=== PATIENT | female | born 1930 | race Caucasian/White ===

== ENCOUNTER 2020-10-28 16:47 | Inpatient (IN) | payer MEDICARE ==
[~2020-10-28] VITALS: Ht 157.5 cm; Wt 45.8 kg
[2020-10-28] MEDS ORDERED: ACETAMINOPHEN 325 MG TABLET PO PRN (17:00)
[2020-10-28] MEDS ORDERED: BLOOD SUGAR DIAGNOSTIC 1 EACH STRIP IN ONE (17:00)
[2020-10-28] MEDS ORDERED: MAGNESIUM HYDROXIDE 30 ML UDC PO PRN (17:00)
[2020-10-28] MEDS ORDERED: MAG HYDROX/AL HYDROX/SIMETH 30 ML UDC PO PRN (17:00)
[2020-10-28] MEDS ORDERED: LATA2.5D15 LEFTEYE (17:21)
[2020-10-28] MEDS ORDERED: TIMO10DR19 LEFTEYE (17:21)
[2020-10-28 17:55] VITALS: BP 139/98
--- NOTE | 2020-10-28 18:18 | NUR ---
Pt. arrived in the unit via an ambulance and transported via a gurney. Pt. placed in room 216A. Pt. is under the services of Dr. Coburn and Eder DE LA ROSA. Dr. Coburn made aware of the admission. V/S taken, contraband taken and skin assessment given. Will endorse to the incoming nurse for the completion of the admission.
[2020-10-28 18:24] VITALS: BP 139/92
--- NOTE | 2020-10-28 19:05 | NUR ---
RN NOTES: RECIVED NEW ADMISSION FORM DAY SHIFT, WILL CONTINUITY WITH CARE.
[2020-10-28 20:00] VITALS: BP 161/84
--- NOTE | 2020-10-28 20:00 | NUR ---
RN NOTES: OFFERED ATIVAN FOR PT. AGGRESSIVE , UNCCOERTIVE BEHAVIOR , PT. REFUSED , PER PT. IDONOT WANT ANY MEDICATIONS .
[2020-10-28] MEDS: LATANOPROST EYE DROP 0.005% 2.5 ML BOTTLE LEFTEYE SCH (21:14)
[2020-10-28 22:00] VITALS: BP 136/83
[2020-10-28] MEDS ORDERED: TEMAZEPAM 7.5 MG CAPSULE PO PRN (22:00)
--- NOTE | 2020-10-28 23:25 | NUR ---
ADMISSION NOTES: ADMITTED THIS 89Y/O FEMALE PATIENT DIRECT ADMIT FROM [facility], PT. ADMITTED TO GPS ON HOLD 5150 DTS,PER HOLD DUE TO PT. STATING THAT SHE IS ALWAYS IN CHRONIC PAIN AND WISHES TO ,UPON FACE TO FACE ASSESSMENT PATIENT IS A&O X 1, ANXIOUS, AGGRESSIVE ,UNCOOPERTIVE ,DISORGNIZED, DISHEVELLED ,HYPERVERBAL, VERBALLY ABUSIVE, SCREAMING YELLING , NON COMPLY WITH CARE, AND MEDICATIONS , TALIKG TO SELF, DENIES SI /HI AT THIS TIME, PT. IS POOR HISTORIAN, POOR INSIGHT ,POOR JUDGEMENT , PT. REFUSED TO SIGNS ADMISSION CONSENT PAPERS ,DUE TO CONFUSION , BOTH MD AWARE AND NOTIFIED OF THE ADMISSION, BELONGINGS CONTRABAND WERE DONE ,PT. RIGHTS DISCUSS BY NAVAL AIRCREWMAN OPERATOR , PROVIDE THE PT. WITH HANDBOOK, AND MEDICATIONS GUIDE, ENVIRONMENTAL SAFETY CHECK DONE, ENCOURAGED PT. VERBALIZED ANY FEELING CONCERN TO STAFF, ORIENT TO UNIT POLICY, NO ACUTE DISTRESS NOTED,VITAL SIGNS WNL ,DENIES ANY PAIN AT THIS TIME,WILL CONTINUE TO MONITOR FOR Q15 SAFETY AND BEHAVIOR.
[2020-10-29 08:00] VITALS: BP 151/91
[2020-10-29] MEDS: TIMOLOL 0.25% SOL OPHTH 10 ML BOTTLE LEFTEYE SCH ×2 (09:53→17:15)
[2020-10-29] MEDS: Z GUARD REMEDY 2 OZ OINT TP SCH (09:53)
[2020-10-29 10:34] LABS: BILIRUBIN,URINE MODERATE (NEGATIVE); COLOR,URINE YELLOW (YELLOW); LEUKOCYTE ESTERASE ,URINE SMALL (NEGATIVE); NITRITE, URINE NEGATIVE (NEGATIVE); PH,URINE 5.5 (5.0-8.0); PROTEIN,URINE NEGATIVE (NEGATIVE); UGLUCOSE NEGATIVE (NEGATIVE); UROBILINOGEN,URINE 0.2 EU/dL (0.2)
[2020-10-29 12:02] LABS: BACTERIA,URINE Few /HPF (None Seen); RBC,URINE 0-2 /HPF (0-2); SQUAMOUS EPITHELIAL CELL,UR Few /HPF (None Seen); WBC,URINE 51-80 /HPF (0-3)
[2020-10-29 16:00] VITALS: BP 127/79
[2020-10-29 17:07] LABS: ALBUMIN 3.7 g/dL (3.4-5.0); BILIRUBIN,TOTAL 0.8 mg/dL (0.2-1.0); CALCIUM, SERUM 9.9 mg/dL (8.5-10.1); CREATININE 0.9 mg/dL (0.6-1.3); POTASSIUM 4.2 mmol/L (3.5-5.1); TOTAL PROTEIN, SERUM 7.1 g/dL (6.4-8.2)
[2020-10-29 17:14] LABS: THYROID STIMULATING HORMONE 0.196 uIU/mL (0.358-3.74)
[2020-10-29] MEDS: DIVALPROEX SODIUM 125 MG CAP.SPRINK PO SCH (17:15)
[2020-10-29 20:00] VITALS: BP 113/68
[2020-10-29] MEDS: OLANZAPINE 2.5 MG TABLET PO SCH (21:26)
[2020-10-29] MEDS: LATANOPROST EYE DROP 0.005% 2.5 ML BOTTLE LEFTEYE SCH (21:27)
[2020-10-29] MEDS: Z GUARD REMEDY 2 OZ OINT TP PRN (21:55)
[2020-10-30] MEDS: Z GUARD REMEDY 2 OZ OINT TP PRN (06:20)
[2020-10-30 08:00] VITALS: BP 136/96
[2020-10-30] MEDS: Z GUARD REMEDY 2 OZ OINT TP SCH (09:32)
[2020-10-30] MEDS: TIMOLOL 0.25% SOL OPHTH 10 ML BOTTLE LEFTEYE SCH ×2 (09:32→16:30)
[2020-10-30] MEDS: DIVALPROEX SODIUM 125 MG CAP.SPRINK PO SCH ×4 (09:32→16:30)
[2020-10-30] MEDS: ENSURE ENLIVE 237 ML LIQUID (VANILLA) PO SCH ×2 (14:29→16:30)
[2020-10-30 16:00] VITALS: BP 132/73
[2020-10-30] MEDS: CEPHALEXIN MONOHYDRATE 500 MG CAPSULE PO SCH (16:30)
--- NOTE | 2020-10-30 20:00 | NUR ---
GPS-RN NOTES: LEFT ARM SKIN TEAR SKIN WEEKLY ASSESSMENT MADE. PATIENT NOTED TO HAVE SKIN TEAR ON HER LEFT LOWER ARM MEASURING 3CMX1.5CM. NO ACTIVE BLEEDING NOTED. PATIENT SKIN IS VERY FRAGILE. NO S/SX OF INFECTION NOTED. PATIENT IS CURRENTLY ON PLAVIX WHICH CAN CONTRIBUTE TO BRUISING. INITIAL TREATMENT DONE. HANDLED GENTLY DURING CARE. DR. GARCIA AWARE WITH ORDER OF WOUND CONSULT IN AM. WILL CONTINUE TO MONITOR FOR ANY SKIN CHANGES. Addendum: 10/31/20 at 0720 by NIELS MANN RN NURSE COIN MACHINE SUPERVISOR AWARE.
[2020-10-30] MEDS: OLANZAPINE 2.5 MG TABLET PO SCH (21:00)
[2020-10-30] MEDS: LATANOPROST EYE DROP 0.005% 2.5 ML BOTTLE LEFTEYE SCH (21:25)
--- NOTE | 2020-10-30 21:25 | NUR ---
GPS-RN NOTES: MEDICATION REFUSAL PATIENT REFUSED SCHEDULED SEROQUEL AND XALATAN EYEDROPS FOR TONIGHT. EDUCATED PATIENT REGARDING MEDICATION COMPLIANCE BUT PATIENT CONTINUED TO REFUSE. WILL CONTINUE TO MONITOR FOR PATIENT'S SAFETY.
[2020-10-31] MEDS: TIMOLOL 0.25% SOL OPHTH 10 ML BOTTLE LEFTEYE SCH ×2 (09:00→16:22)
[2020-10-31] MEDS: DIVALPROEX SODIUM 125 MG CAP.SPRINK PO SCH ×3 (09:00→16:22)
[2020-10-31] MEDS: Z GUARD REMEDY 2 OZ OINT TP SCH (09:00)
[2020-10-31] MEDS: CEPHALEXIN MONOHYDRATE 500 MG CAPSULE PO SCH ×2 (11:13→16:23)
[2020-10-31] MEDS: ENSURE ENLIVE 237 ML LIQUID (VANILLA) PO SCH ×3 (11:13→16:23)
[2020-10-31] MEDS: OLANZAPINE 2.5 MG TABLET PO SCH ×2 (12:30→21:00)
--- NOTE | 2020-10-31 16:15 | NUR ---
Family Contact: SW called the pts son, Jeremy ([phone]), and discussed the discharge plan and he stated that he wanted the pt home and does not want her to be placed elsewhere.
--- NOTE | 2020-10-31 16:28 | NUR ---
Initial Discharge Plan: Pt currently resides at home with her son, Jeremy ([phone]), located at [address] [place] [address]. Per pt, she would like to go home. SW will work with the pt and the MD regarding appropriate discharge planning. SW will form a safe and proper discharge.
--- NOTE | 2020-10-31 19:11 | NUR ---
Late entry: Patient accepts medication dose zyprexa as well as depakote at 5pm, and patient took 1300 depakote. Haider Masters RN
[2020-10-31 20:00] VITALS: BP 103/62
--- NOTE | 2020-10-31 21:45 | NUR ---
GPS RN NOTES: OMNICELL DOWN, UNABLE TO PULL MEDS, PARACHUTE HARNESS RIGGER NOTIFIED. 24 HR HELP DESK NOTIFIED, AWAITING DISPATCH ENGINEERS.
[2020-10-31] MEDS: LATANOPROST EYE DROP 0.005% 2.5 ML BOTTLE LEFTEYE SCH (23:32)
--- NOTE | 2020-10-31 23:59 | NUR ---
GPS RN NOTES: PATIENT REFUSED PM ZYPREXA. UNCOOPERATIVE.
[2020-11-01] MEDS: LORAZEPAM 0.5 MG TABLET PO PRN (05:22)
--- NOTE | 2020-11-01 05:28 | NUR ---
GPS RN NOTES: PATIENT C/O ANXIETY AND RESTLESSNESS. ATIVAN 0.5MG 1TAB GIVEN PO PRN ORDERED AT 0522. WILL CONTINUE TO MONITOR.
[2020-11-01 06:56] LABS: BASOPHILS % (AUTO) 0.4 % (0.0-2.0); EOSINOPHILS % (AUTO) 1.8 % (0.0-6.0); HEMATOCRIT 38 % (33-45); LYMPHOCYTES # (AUTO) 1.1 /CMM (0.8-4.8); LYMPHOCYTES % (AUTO) 11.9 % (20.0-44.0); MEAN CORPUSCULAR HGB CONC 34 g/dl (31.0-36.0); MEAN CORPUSCULAR VOLUME 92 fL (82-100); MONOCYTES # (AUTO) 1.1 /CMM (0.1-1.30); MONOCYTES % (AUTO) 11.7 % (2.0-12.0); NEUTROPHILS # (AUTO) 7.2 /CMM (1.8-8.9); NEUTROPHILS % (AUTO) 74.2 % (43.0-81.0); PLATELET COUNT (AUTO) 238 /CMM (150-450); RED BLOOD CELL COUNT(AUTO) 4.18 MIL/uL (4.0-5.2); WHITE BLOOD COUNT (AUTO) 9.6 K/uL (4.3-11.0)
[2020-11-01 07:46] LABS: ALBUMIN 3.2 g/dL (3.4-5.0); BILIRUBIN,TOTAL 0.8 mg/dL (0.2-1.0); CALCIUM, SERUM 9.4 mg/dL (8.5-10.1); CREATININE 0.9 mg/dL (0.6-1.3); MAGNESIUM 2.1 mg/dL (1.8-2.4); TOTAL PROTEIN, SERUM 6.3 g/dL (6.4-8.2)
[2020-11-01 08:00] VITALS: BP 164/86
[2020-11-01] MEDS: ENSURE ENLIVE 237 ML LIQUID (VANILLA) PO SCH ×3 (08:33→17:00)
[2020-11-01] MEDS: OLANZAPINE 2.5 MG TABLET PO SCH ×2 (08:35→22:33)
[2020-11-01] MEDS: TIMOLOL 0.25% SOL OPHTH 10 ML BOTTLE LEFTEYE SCH ×2 (08:35→17:41)
[2020-11-01] MEDS: CEPHALEXIN MONOHYDRATE 500 MG CAPSULE PO SCH ×2 (08:35→17:36)
[2020-11-01] MEDS: DIVALPROEX SODIUM 125 MG CAP.SPRINK PO SCH ×3 (08:35→17:36)
[2020-11-01] MEDS: Z GUARD REMEDY 2 OZ OINT TP SCH (08:41)
--- NOTE | 2020-11-01 09:58 | NUR ---
WOUND CARE CONSULT: PT PRESENTS WITH GLUTEAL CREASE INCONTINENCE ASSOCIATED SKIN DAMAGE, PRESENT ON ADMISSION. PT ALSO NOTED TO HAVE VERY LONG TOENAILS AND SKIN TEAR TO LEFT ARM. RECOMMENDATIONS MADE FOR WOUND CARE AND SKIN PROTECTION. DISCUSSED WITH NURSING STAFF. DPM CONSULT CALLED TO DR HAMPAPUR. VELAZQUEZ IN AGREEMENT WITH PLAN OF CARE. Addendum: 11/01/20 at 1000 by JUD CHIU WNDNU Amended: Links added.
--- NOTE | 2020-11-01 14:01 | NUR ---
Probable Cause Hearing: Pts 5250 hold was upheld for grave disability.
--- NOTE | 2020-11-01 15:06 | NUR ---
APS Pattern Vault Clerk Contact: Nahed ([phone]) contacted the SW and stated that she is going to close the case if the pt is going to be in the hospital longer. SW stated that she does not have a discharge date but the plan is for the pt to return home.
[2020-11-01 16:00] VITALS: BP 159/69
[2020-11-01 20:00] VITALS: BP 141/74
[2020-11-01] MEDS: LATANOPROST EYE DROP 0.005% 2.5 ML BOTTLE LEFTEYE SCH (22:33)
--- NOTE | 2020-11-02 05:43 | NUR ---
GPS RN CLOSING NOTE PATIENT SLEEPING IN BED A/OX1;. TOLERATING ROOM AIR WELL WITH NO SOB. UNCOOPERATIVE WITH CARE. MED COMPLIANT NO SI/HI AT THIS TIME. DENIES PAIN / DISCOMFORT AT THIS TIME. AUDITORY HALLUCINATIONS NOTED. SAFETY MEASURES IN PLACE: BED IN LOWEST LOCKED POSITION, SIDE RAILS UPX3, EDUCATED TO USE CALL LIGHT, BED ALARMS ON. ALL NEEDS ATTENDED AND ANTICIPATED. WILL ENDORSE CARE PLAN FOR MONITORING FOR SAFETY AND BEHAVIOR TO MORNING RN.
--- NOTE | 2020-11-02 05:44 | NUR ---
GPS RN CLOSING NOTE PATIENT SLEEPING IN BED A/OX2. TOLERATING ROOM AIR WELL WITH NO SOB. COOPERATIVE WITH CARE. NO SI/HI AT THIS TIME. SAFETY MEASURES IN PLACE: BED IN LOWEST LOCKED POSITION, SIDE RAILS UPX3, EDUCATED TO USE CALL LIGHT, BED ALARMS ON. ALL NEEDS ATTENDED AND ANTICIPATED. WILL ENDORSE CARE PLAN FOR MONITORING FOR SAFETY AND BEHAVIOR TO MORNING RN.
--- NOTE | 2020-11-02 07:30 | NUR ---
PT RECEIVED RESTING COMFORTABLY IN BED. NO S/S OR C/O PAIN OR DISTRESS NOTED. SIDE RAILS UP X2. WILL CONTINUE PLAN OF CARE.
[2020-11-02 08:00] VITALS: BP 152/78
[2020-11-02] MEDS: ENSURE ENLIVE 237 ML LIQUID (VANILLA) PO SCH ×3 (09:33→16:42)
[2020-11-02] MEDS: Z GUARD REMEDY 2 OZ OINT TP SCH (09:33)
[2020-11-02] MEDS: CEPHALEXIN MONOHYDRATE 500 MG CAPSULE PO SCH ×2 (09:33→16:41)
[2020-11-02] MEDS: OLANZAPINE 2.5 MG TABLET PO SCH ×3 (09:33→21:22)
[2020-11-02] MEDS: DIVALPROEX SODIUM 125 MG CAP.SPRINK PO SCH ×3 (09:33→16:41)
[2020-11-02] MEDS: TIMOLOL 0.25% SOL OPHTH 10 ML BOTTLE LEFTEYE SCH ×2 (09:34→16:42)
--- NOTE | 2020-11-02 11:01 | NUR ---
Family Contact: SW called the pts son, Jeremy ([phone]), and informed him that the pt is not going to be discharged yet and that once there is a date he will be able to come and pick her up.
--- NOTE | 2020-11-02 15:35 | NUR ---
RN NOTE- NOTED PT TO BE SITTING IN GALI CHAIR AND HEARD COARSE BREATH SOUNDS. AUSCULTATION OF LUNGS NOTED LLL RALES PRESENT, NO RHONCHI, NO COUGH, O2 SATS AT 94% ON RA. PARALEGAL ASSISTANT VIGNESH NOTIFIED. CXR ORDERED.
[2020-11-02 16:00] VITALS: BP 143/56
--- NOTE | 2020-11-02 17:15 | NUR ---
RN NOTE- CXR SHOWS MILD LT BASILAR INFILTRATE. ESTRELLA MEDELLIN NOTIFIED
--- NOTE | 2020-11-02 17:40 | NUR ---
DARK STOOL NOTED MIX OF FORMED AND SOFT STOOL, DARK, RED TINGED IN COLOR. STOOL SAMPLE SENT TO LAB. MADE AWARE.
[2020-11-02] MEDS ORDERED: IV NS 0.9% 500 ML IV ONE (18:00)
[2020-11-02] MEDS ORDERED: IV NS 0.9% 1,000 ML IV PRN (18:00)
[2020-11-02 18:30] LABS: HEMOGLOBIN 11.4 g/dL (11.5-14.8)
--- NOTE | 2020-11-02 18:38 | NUR ---
CHANGE OF SHIFT REPORT PT RESTING COMFORTABLY IN BED. SIDE RAILS UP X2. NO S/S OR C/O PAIN OR DISTRESS NOTED. PT KEPT CLEAN, DRY AND COMFORTABLE. NO SIGNIFICANT CHANGES SINCE PREVIOUS SHIFT. WILL GIVE REPORT TO CORRINE BLANCO.
[2020-11-02 19:52] LABS: OCCULT BLOOD STOOL POSITIVE (NEGATIVE)
[2020-11-02 20:10] VITALS: BP 159/90
[2020-11-02] MEDS: LORAZEPAM 0.5 MG TABLET PO PRN (21:22)
[2020-11-02] MEDS: LATANOPROST EYE DROP 0.005% 2.5 ML BOTTLE LEFTEYE SCH (21:25)
[2020-11-03 06:57] LABS: BASOPHILS % (AUTO) 0.3 % (0.0-2.0); EOSINOPHILS % (AUTO) 2.7 % (0.0-6.0); HEMATOCRIT 32 % (33-45); HEMOGLOBIN 10.5 g/dL (11.5-14.8); LYMPHOCYTES # (AUTO) 1.3 K/uL (0.8-4.8); LYMPHOCYTES % (AUTO) 12.4 % (20.0-44.0); MEAN CORPUSCULAR HGB CONC 33 g/dl (31.0-36.0); MEAN CORPUSCULAR VOLUME 94 fL (82-100); MONOCYTES # (AUTO) 1.3 K/uL (0.1-1.30); MONOCYTES % (AUTO) 13.1 % (2.0-12.0); NEUTROPHILS # (AUTO) 7.4 K/uL (1.8-8.9); NEUTROPHILS % (AUTO) 71.5 % (43.0-81.0); PLATELET COUNT (AUTO) 206 K/uL (150-450); WHITE BLOOD COUNT (AUTO) 10.3 K/uL (4.3-11.0)
[2020-11-03 07:19] LABS: CALCIUM, SERUM 9.5 mg/dL (8.5-10.1); CREATININE 0.8 mg/dL (0.6-1.3)
[2020-11-03 08:00] VITALS: BP 118/56
[2020-11-03] MEDS: OLANZAPINE 2.5 MG TABLET PO SCH ×2 (08:00→09:08)
[2020-11-03] MEDS: ENSURE ENLIVE 237 ML LIQUID (VANILLA) PO SCH ×3 (09:00→13:00)
[2020-11-03] MEDS: CEPHALEXIN MONOHYDRATE 500 MG CAPSULE PO SCH ×2 (09:00→09:11)
[2020-11-03] MEDS: DIVALPROEX SODIUM 125 MG CAP.SPRINK PO SCH ×2 (09:00→09:09)
[2020-11-03] MEDS: TIMOLOL 0.25% SOL OPHTH 10 ML BOTTLE LEFTEYE SCH (09:09)
--- NOTE | 2020-11-03 09:24 | NUR ---
Pt. reused to eat breakfast, spitting the food and refused to drink the ensure and refused water and spitting the meds being crushed. Pt. is irritable and will continue to monitor for safety.
--- NOTE | 2020-11-03 10:16 | NUR ---
RN-CO: TRIED TO CALL RESP. DEMOCRAT CARMEN VARGAS, NO ONE IS ANSWERING AND NO VOICE MAILBOX. RE: PT WILL BE DISCHARGE TO MED SURG DUE TO HIGH BUN.
[2020-11-03] MEDS ORDERED: risperiDONE 0.25 MG TABLET PO SCH (10:30)
--- NOTE | 2020-11-03 10:34 | NUR ---
Graham SCRAP DROP CRANE OPERATOR in the unit and made aware that pt. refused to eat and refused to drink and made aware of the labs and ordered to transfer pt. to the medical floor for dehydration and Dr. Cross made aware of the transfer and ordered to D/C pt. to the medical floor and to continue on hold. filing and polishing supervisor made aware.
[2020-11-03] MEDS: Z GUARD REMEDY 2 OZ OINT TP SCH (10:46)
--- NOTE | 2020-11-03 13:11 | NUR ---
Report given to Jennifer, pictures taken for skin issues and son Jeremy made aware.
--- NOTE | 2020-11-03 13:35 | NUR ---
Pt. transferred to Med Surg via hospital and wheeled by staffs. Pt. endorsed to the nurse Rodriguez in Med-Surg.
[2020-11-03] MEDS ORDERED: MAGN400O6 PO (14:57)
[2020-11-03] MEDS ORDERED: TEMA15CA5 PO (14:57)
[2020-11-03] MEDS ORDERED: CEPH250S PO (14:57)
[2020-11-03] MEDS ORDERED: ACET325T53 PO (14:57)
[2020-11-03] MEDS ORDERED: LACT-246 PO (14:57)
[2020-11-03] MEDS ORDERED: ALLA266C2 TP (14:57)
[2020-11-03] MEDS ORDERED: MAG-55 PO (14:57)
[2020-11-03] MEDS ORDERED: LORA-259 PO (14:57)
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
== END 2020-11-03 13:30 | disposition short-term general hospital (02) | DRG 885 ==
LOC: GPS 16:47
PROVIDERS: ADMIT Psychiatry & Neurology Psychosomatic Medicine; ATTEND Nurse Practitioner Acute Care
DX: F25.9 Schizoaffective disorder, unspecified (principal); F01.50 Vascular dementia, unspecified severity, without behavioral disturbance, psychotic disturbance, mood disturbance, and anxiety; N39.0 Urinary tract infection, site not specified; R45.851 Suicidal ideations; E44.0 Moderate protein-calorie malnutrition; E87.0 Hyperosmolality and hypernatremia; F29 Unspecified psychosis not due to a substance or known physiological condition; G89.29 Other chronic pain; Z91.19 Patient's noncompliance with other medical treatment and regimen; Z73.6 Limitation of activities due to disability; B96.89 Other specified bacterial agents as the cause of diseases classified elsewhere; B35.1 Tinea unguium; B35.3 Tinea pedis; M20.42 Other hammer toe(s) (acquired), left foot; M20.41 Other hammer toe(s) (acquired), right foot; M62.50 Muscle wasting and atrophy, not elsewhere classified, unspecified site; R79.89 Other specified abnormal findings of blood chemistry; R62.7 Adult failure to thrive; E86.1 Hypovolemia; D64.9 Anemia, unspecified
CPT/HCPCS: 36415; 71045-TC; 80048-TC; 80053-TC; 80061-TC; 81001; 82272-TC; 83735-TC; 84443-TC; 85025-TC; 85027-TC; 87081-TC; 87086-TC; 97112-TC; 97116-TC; 97530-TC; J7040; J7042

== ENCOUNTER 2020-11-03 11:19 | Inpatient (IN) | payer MEDICARE ==
[~2020-11-03] VITALS: Ht 154.9 cm; Wt 48.1 kg
[~2020-11-03 11:19] MED LIST: LATA2.5D15 LEFTEYE; TIMO10DR19 LEFTEYE
[2020-11-03] MEDS ORDERED: ONDANSETRON HCL/PF 4 MG/2 ML VIAL IVP PRN (14:30)
[2020-11-03] MEDS ORDERED: ACETAMINOPHEN 325 MG TABLET PO PRN (14:30)
[2020-11-03] MEDS ORDERED: MAG-55 PO (14:57)
[2020-11-03] MEDS ORDERED: LORA-259 PO (14:57)
[2020-11-03] MEDS ORDERED: LACT-246 PO (14:57)
[2020-11-03] MEDS ORDERED: TEMA15CA5 PO (14:57)
[2020-11-03] MEDS ORDERED: ACET325T53 PO (14:57)
[2020-11-03] MEDS ORDERED: CEPH250S PO (14:57)
[2020-11-03] MEDS ORDERED: MAGN400O6 PO (14:57)
[2020-11-03] MEDS ORDERED: ALLA266C2 TP (14:57)
[2020-11-03] MEDS: IV D5/0.45 NACL 1,000 ML IV PRN (15:32)
[2020-11-03] MEDS: ENOXAPARIN SODIUM 40 MG/0.4 ML DISP.SYRIN SQ SCH (15:33)
[2020-11-03] MEDS: ENSURE ENLIVE 237 ML LIQUID (VANILLA) PO SCH (17:00)
[2020-11-03] MEDS ORDERED: CEPHALEXIN MONOHYDRATE 250 MG/5 ML BOTTLE PO SCH (17:00)
[2020-11-03] MEDS: TIMOLOL 0.25% SOL OPHTH 10 ML BOTTLE LEFTEYE SCH (17:10)
--- NOTE | 2020-11-03 18:41 | NUR ---
RN CLOSING NOTE PATIENT IN BED, NO S/S OF DISTRESS OR SI/HI OBSERVED. SITTER AT BED SIDE. SKIN IS WARM TO TOUCH,KEEP CLEAN/DRY, PATIENT IN IV AND RUNNING D5 1/2 NS AT 75ML FOR HYDRATION. RESPIRATORY EVEN AND UNLABORED ON ROOM AIR. KEPT ELEVATED HOB FOR ENSURE AIRWAY AND ASPIRATION PRECAUTION, ALSO LOWEST BED POSITION FOR SAFETY. CALL LIGHT WITHIN REACH, WILL ENDORSE WASHER REPAIRMAN.
[2020-11-03 20:00] VITALS: BP 163/100
[2020-11-03] MEDS: LATANOPROST EYE DROP 0.005% 2.5 ML BOTTLE LEFTEYE SCH (22:00)
--- NOTE | 2020-11-03 22:00 | NUR ---
MS RN OPENING NOTES Patient is A&Ox1. Thrashes her arms when approached during initial introduction, tried to spit on staff when checking IV site. IV site to CAROL is free from redness or swelling, intact and patent. Sitter at bedside d/t psych hold. No signs of respiratory or cardiac distress. Will continue to monitor.
[2020-11-04] MEDS ORDERED: KETOROLAC TROMETHAMINE INJ 30 MG/ML VIAL IV PRN (01:30)
[2020-11-04] MEDS ORDERED: KETOROLAC TROMETHAMINE INJ 30 MG/ML VIAL IM PRN (01:30)
--- NOTE | 2020-11-04 02:03 | NUR ---
During 1999 vital signs on 11/03 patients B/P was 163/100, HR 96 but patient was thrashing her arms around trying to be combative so difficult to tell if this is accurate. At 0100 on 11/04 patient c/o 4/10 pain to back, elbows, and L leg. Order obtained by Dr. Qureshi for Toradol 15mg IV Q8H PRN for pain. Given as ordered at 0150. rechecked BP was 174/86. Will recheck when pain medication takes effect.
[2020-11-04] MEDS: IV D5/0.45 NACL 1,000 ML IV PRN ×2 (03:53→19:50)
[2020-11-04 04:08] VITALS: BP 160/58
--- NOTE | 2020-11-04 06:06 | NUR ---
MS RN CLOSING NOTES Patient is A&Ox1. VSS. Pain managed with PRN Toradol. At beginning of the shift patient was combative thrashing arms around, trying to spit on and bite staff. By 0200 patient was calm and cooperative. Able to fall asleep shortly after but easy to rouse. At 0515 patient refusing AM labs being combative with staff, tried again at 0600, patient continues to refuse and be combative.
[2020-11-04] MEDS: PANTOPRAZOLE 40 MG TABLET.DR PO SCH (07:30)
[2020-11-04 08:00] VITALS: BP 146/71
--- NOTE | 2020-11-04 08:00 | NUR ---
m/s director of compensation: notes awaiting for speech therapist for swallow eval. pt sleeping at this time. sitter at bedside. will continue to monitor.
[2020-11-04] MEDS: ENSURE ENLIVE 237 ML LIQUID (VANILLA) PO SCH ×3 (08:01→16:59)
[2020-11-04] MEDS: TIMOLOL 0.25% SOL OPHTH 10 ML BOTTLE LEFTEYE SCH ×2 (09:00→16:59)
--- NOTE | 2020-11-04 09:32 | NUR ---
m/s human resources generalist: notes pt refused eye drops, stated, "no they don't help." sitter remains at bedside.
--- NOTE | 2020-11-04 10:13 | NUR ---
WOUND CARE CONSULT: PT PRESENTS WITH RASH TO LOWER BUTTOCKS AREA, SKIN TEARS TO BILATERAL ARMS AND DRY SKIN TEAR/WOUND TO LEFT LOWER LEG, ALL PRESENT ON ADMISSION. RECOMMENDATIONS MADE FOR SKIN PROTECTION AND WOUND CARE. DISCUSSED WITH NURSING STAFF. DR ROUSSEAU NOTIFIED OF DP CONSULT REQUEST FOR LOWER LEG WOUND. MD IN AGREEMENT WITH PLAN OF CARE. Addendum: 11/04/20 at 1014 by JUD CHIU WNDNU Amended: Links added.
--- NOTE | 2020-11-04 10:23 | NUR ---
APS Report: SW made a Protective Services Report. Report (Intake ID [id number]) was successfully submitted on 11/04/2020 at 10:21 AM.
[2020-11-04] MEDS ORDERED: Z GUARD REMEDY 2 OZ OINT TP PRN (10:30)
--- NOTE | 2020-11-04 12:20 | NUR ---
m/s occupational therapy director: notes misha benedict (LEARNING AND DEVELOPMENT ADMINISTRATOR) talking to kehinde (son) at this time.
--- NOTE | 2020-11-04 14:00 | NUR ---
m/s fiberglass container winding operator: notes pt still refuses labs. pt remains non-compliant with care and tx.
--- NOTE | 2020-11-04 14:00 | NUR ---
m/s turner and former automatic: notes pt gets combative during care and wound tx, unable to do wound care due to hitting, pinching, punching, and kicking staff. reality orientation provided prn. sitter remains at bedside. will continue to monitor.
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
[2020-11-04] MEDS: Z GUARD REMEDY 2 OZ OINT TP SCH (15:19)
[2020-11-04] MEDS: risperiDONE 0.25 MG TABLET PO SCH (16:57)
[2020-11-04] MEDS: CLOTRIMAZOLE 1% 15 GM TUBE TP SCH (16:59)
--- NOTE | 2020-11-04 17:55 | NUR ---
m/s oyster worker: notes pt remains resistive to care and tx. easily gets agitated despite education provided. sitter remains at bedside. reality orientation provided prn. will continue to monitor.
--- NOTE | 2020-11-04 19:10 | NUR ---
m/s sole stitcher hand: notes report given to paul gallo) for continuity of care.
--- NOTE | 2020-11-04 20:00 | NUR ---
MS RN NOTES Patient is A&Ox1. verbally aggressive, will try to swat at staff when approached. Denies pain. Will not try to get out of bed. No signs of respiratory or cardiac distress. 1:1 observation with sitter.
[2020-11-04 20:18] VITALS: BP 114/73
[2020-11-04] MEDS: LATANOPROST EYE DROP 0.005% 2.5 ML BOTTLE LEFTEYE SCH (21:12)
[2020-11-04] MEDS: MIRTAZAPINE 15 MG TABLET PO SCH (21:13)
[2020-11-04] MEDS: ENOXAPARIN SODIUM 40 MG/0.4 ML DISP.SYRIN SQ SCH (21:16)
--- NOTE | 2020-11-05 06:44 | NUR ---
MS RN NOTES Patient tolerated all due medications well. Denies pain or discomfort. Verbalizes forgetfulness as part of dementia. More cooperative with care today and less verbally and physically combative. Labs drawn. Kept clean and dry. No signs of distress.
[2020-11-05 07:03] LABS: BASOPHILS % (AUTO) 0.6 % (0.0-2.0); EOSINOPHILS % (AUTO) 4.1 % (0.0-6.0); HEMATOCRIT 31 % (33-45); HEMOGLOBIN 10.4 g/dL (11.5-14.8); LYMPHOCYTES # (AUTO) 0.7 K/uL (0.8-4.8); LYMPHOCYTES % (AUTO) 9.5 % (20.0-44.0); MEAN CORPUSCULAR HGB CONC 34 g/dl (31.0-36.0); MEAN CORPUSCULAR VOLUME 92 fL (82-100); NEUTROPHILS # (AUTO) 5.7 K/uL (1.8-8.9); NEUTROPHILS % (AUTO) 72.8 % (43.0-81.0); PLATELET COUNT (AUTO) 226 K/uL (150-450); RED BLOOD CELL COUNT(AUTO) 3.37 MIL/uL (4.0-5.2); WHITE BLOOD COUNT (AUTO) 7.8 K/uL (4.3-11.0)
[2020-11-05 07:14] LABS: CALCIUM, SERUM 8.5 mg/dL (8.5-10.1); CREATININE 0.7 mg/dL (0.6-1.3); MAGNESIUM 1.7 mg/dL (1.8-2.4); POTASSIUM 3.1 mmol/L (3.5-5.1)
--- NOTE | 2020-11-05 07:31 | NUR ---
MS RN NOTES PATIENT RECEIVED IN BED, RESTING COMFORTABLY. ALERT AND ORIENTED X 1. ON ROOM AIR, WITH NO RESPIRATORY DISTRESS NOTED, WITH EVEN NON-LABORED BREATHING. SKIN WARM AND DRY TO TOUCH, IV ACCESS INTACT AND PATENT CURRENTLY INFUSING IV FLUIDS. PATIENT DENIES PAIN OR DISCOMFORT AT THIS TIME. SITTER AT BEDSIDE. SAFETY PRECAUTIONS IMPLEMENTED WITH BED LOCKED, BILATERAL SIDE RAILS UP, BED IN THE LOWEST POSITION, BED ALARM ON AND CALL LIGHT WITHIN EASY REACH. WILL CONTINUE TO MONITOR PATIENT.
[2020-11-05 08:00] VITALS: BP_SYST 142; BP_SYST 145; BP_DIAS 78; BP_DIAS 92
[2020-11-05] MEDS: PANTOPRAZOLE 40 MG TABLET.DR PO SCH (08:25)
[2020-11-05] MEDS: risperiDONE 0.25 MG TABLET PO SCH ×2 (08:25→16:07)
[2020-11-05] MEDS: CLOTRIMAZOLE 1% 15 GM TUBE TP SCH ×2 (08:30→16:09)
[2020-11-05] MEDS: ENSURE ENLIVE 237 ML LIQUID (VANILLA) PO SCH ×3 (08:30→17:02)
[2020-11-05] MEDS: Z GUARD REMEDY 2 OZ OINT TP SCH (08:30)
[2020-11-05] MEDS: TIMOLOL 0.25% SOL OPHTH 10 ML BOTTLE LEFTEYE SCH ×2 (08:32→16:09)
[2020-11-05] MEDS: IV D5/0.45 NACL 1,000 ML IV PRN (08:36)
--- NOTE | 2020-11-05 08:46 | NUR ---
MS RN NOTES PATIENT REQUESTED TYLENOL FOR MILD PAIN, ADMINISTERED PO TYLENOL ORDERED, PATIENT SPITTED OUT AND STATED SHE "DOES NOT WANT IT." WILL CONTINUE TO MONITOR PATIENT.
[2020-11-05] MEDS: Magnesium 1GM/D5W 100ML PREMIX 100 ML IV SCH ×2 (09:32→10:39)
[2020-11-05] MEDS ORDERED: POTASSIUM CHLORIDE 20 MEQ TAB.PRT.SR PO ONE (10:00)
[2020-11-05 15:54] VITALS: BP 148/68
--- NOTE | 2020-11-05 18:16 | NUR ---
MS RN NOTES PATIENT IN BED, RESTING COMFORTABLY. ALERT AND ORIENTED X 1-2. ON ROOM AIR, WITH NO RESPIRATORY DISTRESS NOTED, WITH EVEN NON-LABORED BREATHING. SKIN KEPT CLEAN, WARM AND DRY TO TOUCH, IV ACCESS INTACT AND PATENT CURRENTLY INFUSING IV FLUIDS. MET ALL OF PATIENT'S NEEDS. PATIENT DENIES PAIN OR DISCOMFORT AT THIS TIME. SITTER AT BEDSIDE. SAFETY PRECAUTIONS IMPLEMENTED WITH BED LOCKED, BILATERAL SIDE RAILS UP, BED IN THE LOWEST POSITION, BED ALARM ON AND CALL LIGHT WITHIN EASY REACH. WILL ENDORSE PLAN OF CARE TO UPCOMING RN.
--- NOTE | 2020-11-05 19:34 | NUR ---
MS RN OPENING NOTES: RECEIVED PATIENT AWAKE IN BED, BED IN LOW POSITION, CALL LIGHTS WITHIN REACH, PATIENT IS A/O X1-2 WITH 1:1 SITTER, WITH IV LINE ON CAROL#22 WITH D5 1/2 NSS @75CCML/HR INFUSING WELL, KALL NEEDS MET, KEPT CLEAN AND DRY, WILL CONTINUE TO MONITOR.
[2020-11-05 20:00] VITALS: BP 151/77
[2020-11-05] MEDS: ENOXAPARIN SODIUM 40 MG/0.4 ML DISP.SYRIN SQ SCH (21:10)
[2020-11-05] MEDS: LATANOPROST EYE DROP 0.005% 2.5 ML BOTTLE LEFTEYE SCH (21:11)
[2020-11-05] MEDS: MIRTAZAPINE 15 MG TABLET PO SCH (21:11)
[2020-11-05 22:29] VITALS: BP 151/77
[2020-11-06] MEDS: IV D5/0.45 NACL 1,000 ML IV PRN (02:02)
--- NOTE | 2020-11-06 06:50 | NUR ---
RN CLOSING NOTES: RECEIVED PATIENT AWAKE IN BED, BED IN LOW POSITION, CALL LIGHTS WITHIN REACH, NO COMPLAIN OF PAIN AND DISCOMFORT AT THIS TIME, PATIENT ON BED REST, WITH CAROL#22 ON D5 1/2NSS@75ML/HR INFUSING WELL, PATIENT IS FALL RISK WITH 1:1 SITTER ON BEDSIDE, ALL NEEDS MET, PATIENT WAS KEPT CLEAN AND DRY, ENDORSE TO INCOMING SHIFT.
[2020-11-06 07:30] VITALS: BP 159/74
--- NOTE | 2020-11-06 08:00 | NUR ---
RN OPENING NOTE PT AWAKE IN BED RESTING. A/O X1 AND CHINESE SPEAKING. NO COMPLAINT OF PAIN OR NAUSEA. CURRENTLY ON RA WITH NO SOB OR RESPIRATORY DISTRESS PRESENT. NO EDEMA PRESENT. WOUNDS PRESENT AND PICTURES IN CHART. WOUND CARE TO BE GIVEN. NO ROCK LATHER PRESENT. IV PRESENT ON RA FA AND FLUSHES WELL. LABS AND ORDERS REVIEWED. SAFETY MEASURES IN PLACE. SIDE RAILS RAISED. BED LOWERED. CALL LIGHT WITHIN REACH. WILL CONTINUE TO MONITOR.
[2020-11-06] MEDS: PANTOPRAZOLE 40 MG TABLET.DR PO SCH (08:02)
[2020-11-06] MEDS: risperiDONE 0.25 MG TABLET PO SCH ×2 (08:02→17:00)
[2020-11-06] MEDS: TIMOLOL 0.25% SOL OPHTH 10 ML BOTTLE LEFTEYE SCH ×2 (08:12→17:27)
[2020-11-06] MEDS: ENSURE ENLIVE 237 ML LIQUID (VANILLA) PO SCH ×3 (08:12→17:27)
[2020-11-06] MEDS: Z GUARD REMEDY 2 OZ OINT TP SCH (08:14)
[2020-11-06] MEDS: CLOTRIMAZOLE 1% 15 GM TUBE TP SCH ×2 (08:14→17:27)
[2020-11-06 08:29] LABS: CALCIUM, SERUM 9.1 mg/dL (8.5-10.1); CREATININE 0.7 mg/dL (0.6-1.3); POTASSIUM 3.8 mmol/L (3.5-5.1)
--- NOTE | 2020-11-06 19:52 | NUR ---
RN NOTE PT TRANSFERRED TO GPS IN STABLE CONDITION. IV LINE REMOVED. EXITCARE UTILIZED AND EDUCATION GIVEN. REPORT GIVEN TO NOVEM RN. NO BELONGINGS PRESENT. WOUND PICTURES TAKEN. PT REFUSED WOUND PICTURE ON SACRUM.
[2020-11-07] MEDS ORDERED: CLOT15CR5 TP (05:46)
[2020-11-07] MEDS ORDERED: ACET-3117 PO (05:46)
[2020-11-07] MEDS ORDERED: RISP0.5T65 PO (05:46)
[2020-11-07] MEDS ORDERED: MULTI INGREDIENT (05:46)
[2020-11-07] MEDS ORDERED: MIRT-90 PO (05:46)
[2020-11-07] MEDS ORDERED: PANT40TA49 PO (05:46)
[2020-11-07] MEDS ORDERED: ENOX40DI SQ (05:46)
== END 2020-11-06 19:24 | DRG 641 ==
LOC: UNDOADMIN 11:19 → MED 11:19 → UNDODISIN 13:31 → MED 13:42
PROVIDERS: ADMIT Nurse Practitioner Family; ATTEND Nurse Practitioner Family
DX: E86.0 Dehydration (principal); E44.0 Moderate protein-calorie malnutrition; J98.11 Atelectasis; R45.851 Suicidal ideations; R62.7 Adult failure to thrive; F29 Unspecified psychosis not due to a substance or known physiological condition; R79.89 Other specified abnormal findings of blood chemistry; D64.9 Anemia, unspecified; Z73.6 Limitation of activities due to disability; G89.29 Other chronic pain; L60.3 Nail dystrophy; M20.42 Other hammer toe(s) (acquired), left foot; M20.41 Other hammer toe(s) (acquired), right foot; M62.562 Muscle wasting and atrophy, not elsewhere classified, left lower leg; M62.561 Muscle wasting and atrophy, not elsewhere classified, right lower leg; F03.90 Unspecified dementia, unspecified severity, without behavioral disturbance, psychotic disturbance, mood disturbance, and anxiety; S81.812A Laceration without foreign body, left lower leg, initial encounter; X58.XXXA Exposure to other specified factors, initial encounter; Y92.9 Unspecified place or not applicable; Z91.19 Patient's noncompliance with other medical treatment and regimen; F25.0 Schizoaffective disorder, bipolar type
CPT/HCPCS: 36415; 71045-TC; 80048-TC; 83735-TC; 85025-TC; 92526; 92611-TC; G0378; J1650; J1885; J3475; J3490; J7042

== ENCOUNTER 2020-11-06 19:21 | Inpatient (IN) | payer MEDICARE ==
[~2020-11-06] VITALS: Ht 144.8 cm; Wt 44.5 kg
[~2020-11-06 19:21] MED LIST changes: +ACET325T53 PO; +ALLA266C2 TP; +CEPH250S PO; +LACT-246 PO; +LORA-259 PO; +MAG-55 PO; +MAGN400O6 PO; +TEMA15CA5 PO
--- NOTE | 2020-11-06 19:35 | NUR ---
GPS RN-ADMISSION NOTES: ADMITTED AN 89-Y/O, FEMALE, FROM [facility] DUE TO SEVERE DEHYDRATION. ADMITTED ON 5250 FOR DTS. UPON FACE TO FACE ASSESSMENT, PATIENT IS A/OX1, CONFUSED, DISORGANIZED, DISORIENTED, ANGRY MOOD, AND RESISTIVE/COMBATIVE TO CARE. REORIENTATION PROVIDED. PATIENT HANDBOOK WITH PATIENT'S RIGHT AND GUIDE TO PRESCRIPTIONS GIVEN. PT IS UNDER THE PSYCH CARE OF DR. TERRELL AND THE MEDICAL CARE OF DR. FERNÁNDEZ. OFFERED PNEUMONIA/FLU VACCINE BUT PATIENT REFUSED. NO PERSONAL BELONGINGS UPON ADMISSION. SKIN ASSESSMENT DONE. NO C/O PAIN OR DISCOMFORT AT THIS TIME. SAFETY PRECAUTIONS IN PLACE. WILL CONTINUE TO MONITOR Q15MIN ROUNDS FOR SAFETY AND BEHAVIOR.
[2020-11-06 20:28] VITALS: BP 156/77
[2020-11-06] MEDS ORDERED: ACETAMINOPHEN 325 MG TABLET PO PRN (21:30)
[2020-11-06] MEDS ORDERED: MAGNESIUM HYDROXIDE 30 ML UDC PO PRN ×2 (21:30→23:00)
[2020-11-06] MEDS ORDERED: MAG HYDROX/AL HYDROX/SIMETH 30 ML UDC PO PRN (21:30)
[2020-11-06] MEDS ORDERED: TEMAZEPAM 7.5 MG CAPSULE PO PRN (21:30)
[2020-11-06] MEDS ORDERED: LORAZEPAM 0.5 MG TABLET PO PRN (21:30)
[2020-11-06] MEDS ORDERED: BLOOD SUGAR DIAGNOSTIC 1 EACH STRIP IN ONE (21:30)
[2020-11-06] MEDS ORDERED: Medication Not On Formulary EA (Mag Hydrox/Al Hydrox/Simeth (Maalox Maximum Strength Sus PO PRN (23:00)
[2020-11-06] MEDS ORDERED: Z GUARD REMEDY 2 OZ OINT TP PRN (23:00)
[2020-11-07] MEDS ORDERED: CLOT15CR5 TP (05:46)
[2020-11-07] MEDS ORDERED: ACET-3117 PO (05:46)
[2020-11-07] MEDS ORDERED: RISP0.5T65 PO (05:46)
[2020-11-07] MEDS ORDERED: PANT40TA49 PO (05:46)
[2020-11-07] MEDS ORDERED: MIRT-90 PO (05:46)
[2020-11-07] MEDS ORDERED: ENOX40DI SQ (05:46)
[2020-11-07] MEDS ORDERED: MULTI INGREDIENT (05:46)
[2020-11-07 07:24] LABS: CHOLESTEROL 147 mg/dL (<200); HDL CHOLESTEROL 41 mg/dL (40-60); LDL 81 mg/dL (0-99); TRIGLYCERIDES 115 mg/dL (30-150)
[2020-11-07 08:00] VITALS: BP 134/60
[2020-11-07 08:26] LABS: ALBUMIN 2.8 g/dL (3.4-5.0); BILIRUBIN,TOTAL 0.7 mg/dL (0.2-1.0); CALCIUM, SERUM 9.5 mg/dL (8.5-10.1); CREATININE 0.9 mg/dL (0.6-1.3); POTASSIUM 4.2 mmol/L (3.5-5.1)
[2020-11-07] MEDS: ENSURE ENLIVE 237 ML LIQUID (VANILLA) PO SCH ×4 (09:00→17:00)
[2020-11-07] MEDS: TIMOLOL 0.25% SOL OPHTH 10 ML BOTTLE LEFTEYE SCH ×3 (09:00→17:00)
--- NOTE | 2020-11-07 13:07 | NUR ---
GPS/RN NOTES PATIENT WAS AGITATED, THROWING FOOD, SPITTING OUT FOOD AND CURSING STAFF. GIVE ATIVAN 0.5MG 1 TAB P.O. PATIENT SPIT IT OUT THE MEDICINE. EXPLAINED THE RISK AND BENEFITS. WILL CONTINUE TO MONITOR.
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
[2020-11-07] MEDS: risperiDONE 1 MG TABLET PO SCH ×2 (14:11→21:00)
--- NOTE | 2020-11-07 14:20 | NUR ---
RN NOTE- PT ESCALATING, SCREAMING, AGITATED AND STRIKING OUT. PT NOT DIRECTABLE. RN ATTEMPTED TO GIVE PO RISPERDAL WHICH PT SPIT OUT W CONTINUED AGITATION. DR TERRELL NOTIFIED. ORDERED ZYPREXA 3 MG IM STAT. COMPLIED W STAFF ASSIST.
[2020-11-07] MEDS: CLOTRIMAZOLE/BETAMETASONE DIPROPIONATE 15 GM TUBE TP SCH ×2 (14:25→17:19)
[2020-11-07] MEDS ORDERED: OLANZAPINE 10 MG VIAL IM STA (14:30)
[2020-11-07 16:00] VITALS: BP 150/67
[2020-11-07] MEDS: ACETAMINOPHEN 325 MG TABLET PO PRN (16:11)
--- NOTE | 2020-11-07 16:12 | NUR ---
SNF Referral: SW faxed a referral to the following facilities: [facility] with attn Mell to the fax number: [phone] [facility] with attn to Elaine to the fax number: [phone] [facility] with attn to Dinesh to the fax number: [phone] [facility] with attn to GAURANG to the fax number: [phone] [facility] with attn to Eze to the fax number: [phone]
[2020-11-07] MEDS ORDERED: LORAZEPAM INJ 2 MG/ML VIAL IM STA (16:20)
--- NOTE | 2020-11-07 16:21 | NUR ---
RN NOTE- PT CONTINUED ESCALATION, YELLING SCREAMING. DR TERRELL ORDERED ATIVAN 0.5 MG IM STAT AND DR HAY ORDERED BOLUS NS FLUIDS
[2020-11-07] MEDS ORDERED: IV LR 1000 ML 1,000 ML IV ONE (17:00)
[2020-11-07 20:00] VITALS: BP 134/86
[2020-11-07] MEDS ORDERED: ENOXAPARIN SODIUM 30 MG/0.3 ML DISP.SYRIN SQ SCH (21:00)
[2020-11-07 21:36] LABS: THYROID STIMULATING HORMONE 0.024 uIU/mL (0.358-3.74)
[2020-11-07] MEDS ORDERED: ENOXAPARIN SODIUM 40 MG/0.4 ML DISP.SYRIN SQ SCH (22:00)
[2020-11-07] MEDS ORDERED: LATANOPROST EYE DROP 0.005% 2.5 ML BOTTLE LEFTEYE SCH (22:00)
--- NOTE | 2020-11-07 22:36 | NUR ---
PO MED NOT GIVEN, PATIENT IS LETHARGIC.
--- NOTE | 2020-11-08 04:06 | NUR ---
PATIENT WOKE UP, SCREAMING, BUT STILL LETHARGIC. COTA ASKED THE PT WHAT SHE NEEDS PT REPLIED" NOTHING".
[2020-11-08 08:00] VITALS: BP 113/52
--- NOTE | 2020-11-08 08:00 | NUR ---
received pt. in am,vs stable,no acute distress,extremely groggy.
[2020-11-08] MEDS: TIMOLOL 0.25% SOL OPHTH 10 ML BOTTLE LEFTEYE SCH (09:00)
[2020-11-08] MEDS: ENSURE ENLIVE 237 ML LIQUID (VANILLA) PO SCH ×2 (09:00→13:17)
--- NOTE | 2020-11-08 09:22 | NUR ---
Family Contact: SW received a call from the pts son, Jeremy ([phone]), who stated that the pt cannot be discharged to SNF because being "in our custody is what is making her more sick." SW expressed that the pt is considered failure to thrive as she is not eating appropriately, she is not taking her medications, and she has been getting weaker. Pts son expressed panic at the thought of the pt being in a SNF for a few weeks. SW stated that the pt will be there temporarily and the pts son was upset and hung up the phone on the SW.
[2020-11-08] MEDS ORDERED: PANTOPRAZOLE 40 MG TABLET.DR PO SCH (09:40)
--- NOTE | 2020-11-08 11:30 | NUR ---
pt. refused discharge photos.
[2020-11-08] MEDS: CLOTRIMAZOLE/BETAMETASONE DIPROPIONATE 15 GM TUBE TP SCH (12:14)
--- NOTE | 2020-11-08 12:32 | NUR ---
report called to facility,spoke to coreen.
--- NOTE | 2020-11-08 13:00 | NUR ---
call in to facility with report.
[2020-11-08] MEDS: ACETAMINOPHEN 325 MG TABLET PO PRN (13:19)
--- NOTE | 2020-11-08 13:25 | NUR ---
Discharge Note: Pt will be discharged to [facility] ([facility]) located at [address] [place] [id number]; ([phone]). Pt will be transported via [facility] at 1PM. Upon discharge, pt appears to be in a dysphoric mood and presents with a guarded affect. Pt denies suicidal and homicidal ideation and denies visual and auditory hallucinations. Pt appears to be alert and oriented x3 (time, place, and self). Pt appears to be well groomed and ambulatory with an unsteady gait. Pt will continue to follow up with psychiatrist, Dr. Coburn, located at [address] [address]; and decorator hand, Dr. Acevedo, located at [address] [place], [address]; . Pt was provided with homeless resources and a copy was placed in the chart. The homeless waiver, choice of vendor form and the multidisciplinary exit care form was done, printed, signed, and given to the patient.
--- NOTE | 2020-11-08 13:30 | NUR ---
pt. denies auditory,visual hallucinations,s/i or h/i.made ready for discharge.packed pt. up and report to drivers.taken to facility via ambulance.
== END 2020-11-08 13:30 | DRG 885 ==
LOC: GPS 19:21
PROVIDERS: ADMIT Psychiatry & Neurology Psychosomatic Medicine; ATTEND Internal Medicine
DX: F25.0 Schizoaffective disorder, bipolar type (principal); E44.0 Moderate protein-calorie malnutrition; J98.11 Atelectasis; F29 Unspecified psychosis not due to a substance or known physiological condition; F41.9 Anxiety disorder, unspecified; F03.90 Unspecified dementia, unspecified severity, without behavioral disturbance, psychotic disturbance, mood disturbance, and anxiety; D64.9 Anemia, unspecified; G89.29 Other chronic pain; E86.0 Dehydration; R62.7 Adult failure to thrive; R79.89 Other specified abnormal findings of blood chemistry; F43.10 Post-traumatic stress disorder, unspecified; Z91.19 Patient's noncompliance with other medical treatment and regimen
CPT/HCPCS: 36415; 80048-TC; 80053-TC; 80061-TC; 84439-TC; 84443-TC; 84481; 97112-TC; 97530-TC; J1650; J2060; J3490; J7120